=== PATIENT | female | born 1980 | race Caucasian/White ===

== ENCOUNTER 2018-05-11 00:07 | Emergency (ER) | payer MEDICAID ==
[2018-05-11 00:16] VITALS: BP 127/73
[2018-05-11] MEDS ORDERED: AMOX/CLAV 875 MG/125 MG TABLET PO STA (00:28)
[2018-05-11] MEDS ORDERED: NAPROXEN 250 MG TABLET PO STA (00:28)
--- NOTE | 2018-05-11 00:31 | ED Physician Documentation ---
PD HPI URI - Stated complaint Stated Complaint: FEVER,R EAR PX - Chief complaint Chief Complaint: Resp - Additional information Additional information: 38-year-old female presents the emergency department with 7 days of nasal congestion and now right ear pain. Symptoms are described as moderate. No relieving factors. Positive for cough but no shortness of breath. No other associated symptoms. No relieving factors Review of Systems Constitutional: reports: Fever, Chills Eyes: denies: Discharge Ears: reports: Ear pain Nose: reports: Rhinorrhea / runny nose, Congestion Throat: denies: Sore throat Cardiac: denies: Palpitations Respiratory: reports: Cough. denies: Wheezing GI: denies: Abdominal Pain : denies: Dysuria Skin: denies: Rash Musculoskeletal: denies: Neck pain Neurologic: denies: Headache Immunocompromised: denies: Chemotherapy PD PAST MEDICAL HISTORY - Past Medical History Past Medical History: Yes Neuro: Migraines Musculoskeletal: Rheumatoid arthritis - Past Surgical History Past Surgical History: No - Present Medications Home Medications: Ambulatory Orders Medication Instructions Recorded Confirmed Amox/Clav 875/125 [Augmentin] 1 each PO Q12H #20 tablet 05/11/18 Rizatriptan Benzoate [Rizatriptan] 10 mg PO PRN PRN 05/11/18 05/11/18 - Allergies Allergies/Adverse Reactions: Allergies Allergy/AdvReac Type Severity Reaction Status Date / Time No Known Drug Allergies Allergy Verified 05/11/18 00:16 - Social History Does the pt smoke?: No Smoking Status: Never smoker Does the pt drink ETOH?: Yes Does the pt have substance abuse?: No Substance Use and Type: Marijuana - POLST Patient has POLST: No PD ED PE NORMAL - General General: Alert and oriented X 3, No acute distress - HEENT HEENT: Atraumatic, PERRL, EOMI - Neck Neck: Supple, no meningeal sign - Cardiac Cardiac: RRR, Strong equal pulses - Respiratory Respiratory: No respiratory distress - Derm Derm: Normal color - Neuro Neuro: Alert and oriented X 3, Normal speech - Psych Psych: Normal mood PD ED PE EXPANDED - HEENT HEENT: R TM red, R TM dull, R TM bulging, R TM loss of landmarks, Nasal congestion, Rhinorrhea, Moist mucous membranes, Pharynx normal. No: L TM red, L TM dull, L TM bulging, L TM retracted, L TM loss of landmarks, Pharyngeal erythema, Swollen tonsils, Tonsillar exudate, Soft palate petecchiae Results - Vitals Vitals: Vital Signs - 24 hr 05/11/18 00:13 Temperature 36.4 C L Heart Rate 97 Respiratory 18 Rate Blood Pressure 127/73 O2 Saturation 97 Oxygen O2 Source Room air PD MEDICAL DECISION MAKING - ED course ED course: The patient has acute otitis media most likely secondary to a acute sinusitis. Since the patient's symptoms have been over 7 days I will start her on a course of Augmentin. I discussed with the patient the plan. She understands and agrees. I discussed warning signs and recommended returning to the emergency department immediately for any worsening or any concerns. - Sepsis Event Vital Signs: Vital Signs - 24 hr 05/11/18 00:13 Temperature 36.4 C L Heart Rate 97 Respiratory 18 Rate Blood Pressure 127/73 O2 Saturation 97 Oxygen O2 Source Room air Departure - Departure Disposition: 01 Home, Self Care Clinical Impression: AOM (acute otitis media) Qualifiers: Otitis media type: suppurative Laterality: unspecified laterality Recurrence: not specified as recurrent Spontaneous tympanic membrane rupture: without spontaneous rupture Qualified Code(s): H66.009 - Acute suppurative otitis media without spontaneous rupture of ear drum, unspecified ear Condition: Good Instructions: ED Otitis Media Acute Ch, ED Sinusitis Abx Tx Prescriptions: Amox/Clav 875/125 [Augmentin] 1 each PO Q12H #20 tablet Comments: Please follow-up with primary care. Please return to the Emergency department for worsening symptoms or any concerns
== END 2018-05-11 00:52 | disposition home or self-care (01) ==
LOC: ED 00:07
DX: H66.001 Acute suppurative otitis media without spontaneous rupture of ear drum, right ear (principal)
CPT/HCPCS: 99283; A9270